=== PATIENT | male | born 1945 | race Caucasian/White ===

== ENCOUNTER 2023-12-20 10:17 | Emergency (ER) | payer MEDICARE, SELFPAY ==
[2023-12-20 10:18] VITALS: BMI 28.0
[2023-12-20 10:26] VITALS: BP 165/106
[2023-12-20 10:45] LABS: % Basophils 0.9 % (0-2); % Eosinophils 1.3 % (0-6); % Immature Granulocytes 0.4 % (0-0.5); % Lymphocytes 30.9 % (20.5-51.1); % Monocytes 7.6 % (1.7-9.3); % Neutrophils 58.9 % (42.2-75.2); Absolute Basophils 0.1 10^3/uL (0-0.2); Absolute Eosinophils 0.1 10^3/uL (0-0.7); Absolute Lymphocytes 2.4 10^3/uL (1.2-3.4); Absolute Monocytes 0.6 10^3/uL (0.1-0.6); Absolute Neutrophils 4.6 10^3/uL (1.4-6.5); Hematocrit 46.5 % (39.0-52.0); Hemoglobin 15.5 g/dL (13.0-18.0); Mean Corp Hgb Conc. 33.3 g/dL (33.0-37.0); Mean Corpuscular Hgb 30.8 pg (27.0-31.0); Mean Corpuscular Volume 92.4 fL (80.0-94.0); Mean Platelet Volume 9.9 fL (7.4-10.4); Nucleated Red Blood Cells % 0 % (-); Platelet Count 207 10^3/uL (130-400); Red Blood Cell Count 5.03 10^6/uL (4.70-6.10); Red Cell Dist. Width 13.1 % (11.5-14.5); White Blood Cell Count 7.7 10^3/uL (4.8-10.8)
--- NOTE | 2023-12-20 10:52 | ED.GENMED ---
History of Present Illness
General
Chief Complaint: Heart Rate Problem
Source: patient
Exam Limitations: none
Time Seen by Provider: 12/20/23 10:35
Travel History
Have you had any contact with someone who has COVID-19?: No
Do you have any symptoms of coronavirus? Fever > 100 degrees, chills, cough, shortness of breath, sore throat, loss of taste or smell, muscle aches, or headache?: No
History of Present Illness
History of Present Illness:
Patient with rapid irregular heartbeat that started late last evening. History of atrial fibrillation. Feels the same. No chest pain or shortness of breath. Self resolved prior to me going in the room. Currently asymptomatic. Patient on
Cardizem 120/day. Also with unfaithful. Has gotten atrial fibrillation about every 6 to 8 weeks over the last year
Past History
Past History
ED Past Medical History: Arrthythmia, Hypercholesterolemia, Other (IBS) and Other (chronic Low back pain)
ED Past Surgical History: Appendectomy and Cardiac (Ablation in 2000)
Social History
Tobacco: Non-smoker
Alcohol: None
Drug: None
Personal:
Living: with family
Employment: Retired
Family History
Family History: Other (Noncontributory)
Review of Systems
Review of Systems
All Other Systems: Not applicable
Cardiac: Denies chest pain or syncope
Phy Exam
Physical Exam
Physical Exam:
GENERAL: Alert and oriented in no apparent distress
EYE: Orbits normal.
NECK: Supple, no thyroid palpable.
ENT: Pharynx without erythema
CARDIAC: Regular rate and rhythm without any obvious murmurs.
LUNGS: Clear breath sounds,normal
ABDOMEN: Soft, without focal tenderness or distention
NEUROLOGICAL: Alert and oriented , grossly non-focal
SKIN: Warm and dry, no rash or lesion, no discoloration, skin intact.
MUSCULOSKELETAL: No edema,no deformity.Good color
PSYCH: Normal and appropriate interaction.
Course
Orders/Labs/Results
Orders:
Orders
12/20/23 10:19
ECG [Electrocardiogram (*1)] Urgent
Reason for Study: Atrial Fibrillation
EKG- Treatment ONCE
12/20/23 10:37
Complete Blood Count/With Diff Urgent
Comprehensive Metabolic Panel Urgent
12/20/23 10:38
Electrocardiogram (*1) Urgent
Reason for Study: Other
Other Reason for Exam: repeat EKG following Afib to NSR
EKG- Treatment ONCE
Abnormal Lab Results
12/20/23
10:37
BUN 26 H mg/dl
(9-20)
Glucose 119 H mg/dl
(70-99)
12/20/23 10:37
12/20/23 10:37
Vital Signs
Initial and Last Documented VS:
Initial Vital Signs
Temp Pulse Resp BP Pulse Ox
98.0 F 130 16 165/106 98
12/20/23 10:26 12/20/23 10:26 12/20/23 10:26 12/20/23 10:26 12/20/23 10:26
Last Documented Vital Signs
Temp Pulse Resp BP Pulse Ox
98.0 F 63 16 123/66 94
12/20/23 10:26 12/20/23 13:00 12/20/23 13:00 12/20/23 13:00 12/20/23 13:00
MDM/Problems Addressed
Differential Diagnosis Includes:
PAF. Self resolved. Will check electrolytes and monitor.
*Critical Care Note
Total Time (30-74mins, 75-104mins- exclusive of procedures): Not Applicable
Data Reviewed
Review of Other/Old Records Reveals: Labs, Records and Testing
Update Note
Update Note:
Patient is remained in a normal sinus rhythm. No arrhythmias no electrolyte issues asymptomatic discharged to follow-up repeat EKG normal sinus rhythm at 73. [place] intervals within normal limits.
ED Attending Note
-
Portions of this chart may have been created with voice recognition software.� Occasional wrong word or��sound alike� substitutions may have occurred due to the inherent limitations of voice recognition software.
Discharge Plan
Departure
Patient Disposition: Home (Routine Discharge)
Date of Disposition: 12/20/23
Time of Disposition: 13:16
Patient with high blood pressure during this ER visit?: Yes
Discharge Problem:
Paroxysmal atrial fibrillation
Instructions: Atrial Fibrillation (DC)
Prescriptions:
No Action
gabapentin 300 mg Capsule
300 mg PO BID
ezetimibe [Zetia] 10 mg Tablet
10 mg PO DAILY
Eliquis 5 mg Tablet
5 mg PO BID
Hold Instructions: Resume on 02/24/23. DO NOT RESUME ELIQUIS UNTIL WENDSD EVENING DOSE - full 48hrs post op
multivitamin Tablet
1 tab PO DAILY
psyllium Packet
1 packet PO DAILY
acetaminophen 650 mg Tablet Extended Release
1,300 mg PO Q12H PRN (Reason: pain)
ascorbic acid (vitamin C) [Vitamin C] 500 mg Tablet
500 mg PO DAILY
diltiazem HCl [Cardizem CD] 120 mg Capsule,Extended Release 24hr
120 mg PO BID
Acidophilus Capsule
1 cap PO DAILY
cholecalciferol (vitamin D3) [Vitamin D3] 10 mcg (400 unit) Tablet
10 mcg PO DAILY
Calcium + D
1 tab PO DAILY
Cbd
10 mg PO BID
Dulcolax (bisacodyl)
1 tab PO TID
Glucosamine Chondroitin
1 tab PO DAILY
magnesium
220 mg PO BID
acetaminophen [Tylenol Extra Strength] 500 mg tablet
1,000 mg PO Q6HPRN PRN (Reason: mild pain) Qty: 1 0RF
tramadol 50 mg tablet
50 mg PO Q6HPRN PRN (Reason: severe pain/breakthrough pain) Qty: 7 0RF
Referrals:
Nate Clayton MD [Family Provider] -
Activity Restrictions/Additional Instructions:
Call your rn otolaryngology for close follow-up
Interventions
Interventions:
*Risk Screen - Suicide Last Done: 12/20/23 10:30
*General Assessment Last Done: 12/20/23 10:30
*Neglect/Abuse Screening Last Done: 12/20/23 10:30
*ED COVID-19 Vaccine History Last Done: 12/20/23 10:26
*Nursing Disposition Last Done: 12/20/23 13:37
ED- Cardiac Assessment Last Done: 12/20/23 10:32
ED- Pulmonary Assessment Last Done: 12/20/23 10:32
Discharge Date and Time
Discharge Date/Time: 12/20/23 13:40
[2023-12-20 10:59] LABS: ALT (SGPT) 25 U/L (0-50); AST (SGOT) 30 U/L (17-59); Albumin 4.7 g/dl (3.5-5.0); Alkaline Phosphatase 98 U/L (38-126); Blood Urea Nitrogen 26 mg/dl (9-20); Calcium 9.5 mg/dl (8.4-10.2); Carbon Dioxide 27 mmol/L (22-30); Chloride 106 mmol/L (98-107); Estimated Creatinine Clearance 54 ml/min; Glucose 119 mg/dl (70-99); Potassium 4.1 mmol/L (3.5-5.1); Sodium 141 mmol/L (135-145); Total Bilirubin 0.5 mg/dl (0.2-1.3); Total Protein 7.8 g/dl (6.3-8.2); eGFR > 60.00
[2023-12-20 11:00] VITALS: BP 123/67
[2023-12-20 11:51] VITALS: BP 121/74
[2023-12-20 12:00] VITALS: BP 134/61
[2023-12-20 13:00] VITALS: BP 123/66
== END 2023-12-20 13:40 | disposition home or self-care (01) ==
LOC: EMR 10:17
PROVIDERS: EMERGENCY PHYSICIAN Emergency Medicine; FAMILY PHYSICIAN Internal Medicine
DX: I48.0 Paroxysmal atrial fibrillation (principal); R03.0 Elevated blood-pressure reading, without diagnosis of hypertension
CPT/HCPCS: 99284; 80053; 85025; 93005

== ENCOUNTER → 2024-02-01 09:21 | Outpatient (REF) | payer MEDICARE, SELFPAY | LOC: RAD 09:21 | PROVIDERS: ATTENDING PHYSICIAN Physician Assistant; FAMILY PHYSICIAN Internal Medicine | DX: I48.0 Paroxysmal atrial fibrillation (principal); I47.29 Other ventricular tachycardia; M54.17 Radiculopathy, lumbosacral region | CPT/HCPCS: 75572; Q9967 ==

== ENCOUNTER → 2024-04-06 09:08 | Outpatient (REF) | payer MEDICARE, SELFPAY | LOC: PAVMRI 09:08 | PROVIDERS: ATTENDING PHYSICIAN Internal Medicine | DX: K86.2 Cyst of pancreas (principal); R16.0 Hepatomegaly, not elsewhere classified | CPT/HCPCS: 74183; A9575 ==

== ENCOUNTER 2024-05-08 08:47 | Day surgery (SDC) | payer MEDICARE, SELFPAY ==
[2024-05-04 13:17] VITALS: BMI 32.8
[2024-05-04 13:43] LABS: % Basophils 1.1 % (0-2); % Eosinophils 1.5 % (0-6); % Immature Granulocytes 0.6 % (0-0.5); % Monocytes 7.5 % (1.7-9.3); % Neutrophils 57.3 % (42.2-75.2); Absolute Basophils 0.1 10^3/uL (0-0.2); Absolute Eosinophils 0.1 10^3/uL (0-0.7); Absolute Lymphocytes 2.3 10^3/uL (1.2-3.4); Absolute Monocytes 0.5 10^3/uL (0.1-0.6); Absolute Neutrophils 4.1 10^3/uL (1.4-6.5); Hematocrit 41.1 % (39.0-52.0); Hemoglobin 13.9 g/dL (13.0-18.0); Mean Corp Hgb Conc. 33.8 g/dL (33.0-37.0); Mean Corpuscular Hgb 31.2 pg (27.0-31.0); Mean Corpuscular Volume 92.2 fL (80.0-94.0); Mean Platelet Volume 9.8 fL (7.4-10.4); Nucleated Red Blood Cells % 0 % (-); Platelet Count 223 10^3/uL (130-400); Red Blood Cell Count 4.46 10^6/uL (4.70-6.10); Red Cell Dist. Width 13.1 % (11.5-14.5); White Blood Cell Count 7.1 10^3/uL (4.8-10.8)
[2024-05-04 14:02] LABS: ALT (SGPT) 24 U/L (0-50); AST (SGOT) 27 U/L (17-59); Albumin 4.7 g/dl (3.5-5.0); Alkaline Phosphatase 78 U/L (38-126); Blood Urea Nitrogen 20 mg/dl (9-20); Calcium 9.8 mg/dl (8.4-10.2); Carbon Dioxide 25 mmol/L (22-30); Chloride 105 mmol/L (98-107); Estimated Creatinine Clearance 56 ml/min; Glucose 107 mg/dl (70-99); Potassium 4.2 mmol/L (3.5-5.1); Sodium 139 mmol/L (135-145); Total Bilirubin 0.5 mg/dl (0.2-1.3); Total Protein 7.1 g/dl (6.3-8.2); eGFR > 60.00
[2024-05-08] VITALS (15 sets, daily range): BP systolic 101–157; BP diastolic 70–87; BMI 27.5
[2024-05-08 13:39] LABS: ACT-LR - POC 290 Seconds (116-155)
[2024-05-08 13:58] LABS: ACT-LR - POC 371 Seconds (116-155)
[2024-05-08 14:19] LABS: ACT-LR - POC 327 Seconds (116-155)
--- NOTE | 2024-05-08 14:54 | ITS.CL.ABL ---
Voltage Tester - Ablation
Ablation
Procedure Report:
AFIB ablation:
Mr. Aleman is a very pleasant 79 yr old gentleman with symptomatic paroxysmal AF failed DCCV and Diltiazem presented today to the EP lab for atrial fibrillation ablation.
Date of the Procedure:
05/08/2024
Indications:
Paroxysmal atrial fibrillation
Pre-Operative Diagnosis:
Paroxysmal atrial fibrillation
Post-Operative Diagnosis:
Paroxysmal atrial fibrillation
Procedure Performed:
Atrial fibrillation ablation with Pulsed-Field approach for pulmonary vein isolation
Performing Physician:
Lin Noriega MD
Assistants:
EP staff
Anesthesia:
See anesthesia records
Detailed Description of the Procedure:
Written informed consent was obtained from the patient after a full explanation of the risks and benefits of the procedure including the risks of sedation and anesthesia.
The patient was brought to the electrophysiology laboratory in stable condition in fasting state. Continuous electrocardiographic and hemodynamic monitoring was initiated.
The initial rhythm was normal sinus rhythm.
The procedure site was meticulously prepared with surgical scrub and allowed to dry with no pooling. Sterile draping was applied to cover the procedure site. The image intensifier was draped with sterile bag and positioned over the patient. After
infusion of local anesthetic, vascular access was obtained under ultrasound guidance and sheaths were placed over guide wire as detailed below.
Sheath and Catheter Placement:
In the right femoral vein, an 8-Yakut sheath was placed under ultrasound guidance for use during the ablation procedure and a mapping catheter was intermittently placed in the high right atrium, right ventricle, left atrium. In the right femoral
vein, another 9-Fr sheath was placed for use during intra-cardiac echo procedure. Another 7Fr sheath was placed in the left femoral vein for CS catheter placement.
The sheaths were upgraded as needed during the case. Intra-cardiac catheters were positioned using direct fluoroscopic guidance. Decapolar catheter advanced into CS position. ICE catheter was placed in RA. The following catheters / sheaths were
placed
Sheaths:
��������� 15Fr steerable sheath (FlexCath Cross�, [employer]) in right femoral vein in right femoral vein
��������� 9Fr in right femoral vein
��������� 7Fr in right femoral vein
Catheters:
��������� GONZALO HD Grid mapping catheter � at locations of RA, LA
��������� PulseSelect� PFA catheter
��������� ICE catheter -AcuNav - at locations of RA, SVC, and RV.
��������� Decapolar Bard catheter in RA and CS
Intracardiac ECHO:
An 8-Yakut AcuNav intracardiac ECHO (ICE) probe was advanced through the 9-Yakut sheath in the right femoral vein into the right atrium under fluoroscopic and ICE ultrasound image guidance and a baseline ECHO study was performed. The left atrial
size was mildly dilated. There was moderate tricuspid regurgitation. The aortic valve was grossly normal. There was normal left ventricular systolic functions. There is trace pericardial effusion. All the four veins were identified and has flow
identified.
During the procedure, ICE was used for monitoring of complications, guidance of trans-septal puncture, monitor the catheter position and tracking ablation lesions. No change in the pericardial space noted throughout the procedure.
Trans-septal Puncture:
Heparin was initiated and infused to maintain appropriate ACT. A J-tipped guidewire was advanced through the 8-Yakut sheath in the right femoral vein into the superior vena cava under fluoroscopic and ICE guidance. The 8-Yakut sheath was exchanged
for a FlexCath Cross sheath which was advanced into the superior vena cava. An AcPeopleAdmin transseptal access system was utilized to perform the trans-septal puncture. The apparatus was withdrawn until it was in contact with the fossa ovalis. The
position was adjusted based on fluoroscopy and ultrasound images from ICE. Under fluoroscopic, hemodynamic and ICE ultrasound guidance, left atrium was cannulated by advancing the needle. Once atrial septum was cannulated, the needle was pulled back
and a guide wire was advanced through the needle into the left atrium. The guide wire was advanced into the left superior pulmonary vein. Both the sheath and the dilator was advanced into the left atrium. The dilator with the needle was withdrawn.
Blood was aspirated from the FlexCath cross sheath and arterial blood confirmed. The sheath was flushed. Saline injection noted into the left atrium on ICE. The mapping catheter was advanced in the Agilis sheath into the left pulmonary vein. Left
atrial pressure was measured.
3D Electroanatomic Mapping:
Using the HD Grid catheter advanced through sheath into the left atrium, an electroanatomic map (EAM) of the left atrium was created using Valentin Uzhun GONZALO mapping system. The map was used for localization of catheter position and tacking of ablation
lesions. The EAM of the left atrium showed 3 pulmonary veins with two left sided and one right sided veins (right common with early bifurcation into 4 veins) electrically connected to the body the LA. The EAM showed no significant scar in the left
atrium.
The LA was normal in size.
Following the EAM, preparation were made for ablation.
Phrenic nerve stimulation:
The decapolar catheter was placed in the SVC and phrenic nerve was paced to identify the pacing location. The phrenic was paced during the ablation as needed.
Ablation:
Ablation # 1: Pulmonary vein Isolation:
Using [facility]� pulsed field ablation system, pulmonary vein isolation was acieved. First the ablation catheter was placed in the LSPV and ostial ablation lesions were performed in a counter clock davis approach all around the PV ostium
circumferentially. Then the catheter was placed on the antral location and multiple ablation lesions were placed circumferentially on the antrum of the vein.
In the similar fashion, the LIPV were isolated.
Then the catheter was moved to right sided veins. The phrenic nerve was paced before and after the ablation on the right sided vein aisha the anterior ablations.
The ostial and antral ablations were placed as noted above.
Post ablation Electroanatomic mapping:
Once the sinus rhythm achieved, the LA was mapped with HD grid in detail.
The veins were isolated and normal electrograms noted in the posterior wall. Excellent WACA ablation noted with excellent demarcation of LA myocardium and isolated antral tissue. There was dissociated signals were noted in the veins as well.
EPS and Confirmation of the PVI and bidirectional block:
Following achievement of entrance block at the pulmonary veins, pacing from the HD catheter in each of the four veins at 10 milliamps for 2 milliseconds showed entrance and exit block. All PVI were rechecked at the end of the case and remained
isolated with dissociated and local capture with pacing. Entrance and exit block were demonstrated in all veins.
Procedure End
ICE study was done again that showed no epicardial accumulation. No complications noted.
Following the completion of the EP study, catheters were removed. Protamine 30 mg was given at the end of the procedure and ACT was checked repeatedly. The sheaths were removed and hemostasis achieved with manual compression after acceptable ACT is
achieved.
Left atrial Pressure:
Mean LA pressure was 8mmHg
Estimated Blood loss:
<10 cc
Specimens Removed:
None.
Implants / Devices:
None
Urine output:
None
Packs / Drains/ Tubes:
None
Instrument / Sponge Count Correct:
Yes
Complications of the Procedure:
None
Condition of Patient at Time of Transfer:
Hemodynamically stable with no neurological or vascular compromise.
Summary:
Successful atrial fibrillation ablation with Pulsed Field approach for pulmonary vein isolation
Figures from the Procedure:
Figure 1: The electroanatomic mapping (EAM) of the left atrium with bipolar voltage (purple indicates normal electrical activity with swanson as no myocardial muscle electric activity indicating a line of block or scar.
--- NOTE | 2024-05-08 16:04 | PTCARENOTE ---
Dr Noriega at pt bedside speaking to pt
== END 2024-05-08 17:30 | disposition home or self-care (01) ==
LOC: CATH 08:47
PROVIDERS: ATTENDING PHYSICIAN Internal Medicine Cardiovascular Disease; FAMILY PHYSICIAN Internal Medicine; OTHER PHYSICIAN Internal Medicine Cardiovascular Disease
DX: I48.0 Paroxysmal atrial fibrillation (principal); I47.10 Supraventricular tachycardia, unspecified; E78.5 Hyperlipidemia, unspecified; K21.9 Gastro-esophageal reflux disease without esophagitis; G47.33 Obstructive sleep apnea (adult) (pediatric); K58.9 Irritable bowel syndrome, unspecified; N40.0 Benign prostatic hyperplasia without lower urinary tract symptoms; Z79.01 Long term (current) use of anticoagulants
CPT/HCPCS: C1732; C1894; C1730; C1733; C1769; C1892; C1759; 36415; 76937; 80053; 85025; 85347; 86850; 86900; 86901; 93005; 93656; C1760

== ENCOUNTER → 2025-05-14 12:49 | Outpatient (REF) | payer MEDICARE, SELFPAY | LOC: PAVMRI 12:49 | PROVIDERS: ATTENDING PHYSICIAN Internal Medicine | DX: K86.2 Cyst of pancreas (principal); R16.0 Hepatomegaly, not elsewhere classified | CPT/HCPCS: 74183; A9575 ==

== ENCOUNTER → 2025-06-26 07:03 | Outpatient (REF) | payer MEDICARE, SELFPAY | LOC: RAD 07:03 | PROVIDERS: ATTENDING PHYSICIAN Nurse Practitioner Acute Care; FAMILY PHYSICIAN Internal Medicine | DX: M54.16 Radiculopathy, lumbar region (principal) | CPT/HCPCS: 72110 ==

== ENCOUNTER → 2025-06-27 11:14 | Outpatient (REF) | payer MEDICARE, SELFPAY | LOC: MRI 11:14 | PROVIDERS: ATTENDING PHYSICIAN Nurse Practitioner Acute Care; FAMILY PHYSICIAN Internal Medicine | DX: M54.16 Radiculopathy, lumbar region (principal) | CPT/HCPCS: 72148 ==